=== PATIENT | male | born 2000 | race Caucasian/White ===

== ENCOUNTER 2018-01-02 22:25 | Emergency (ER) | payer OTHER ==
[2018-01-02 23:45] LABS: ABS Basophils 0 10^3/ul (0-0.2); ABS Eosinophils 0.2 10^3/ul (0-0.6); ABS Lymphocytes 1.3 10^3/ul (1.0-4.8); ABS Monocytes 1.3 10^3/ul (0-0.8); ABS Neutrophils 2.8 10^3/ul (1.5-7.7); ABS Nucleated RBC 0 10^3/ul; Eosinophil % 3.9 % (0-6); Hematocrit 44 % (42-52); Hemoglobin 15.7 g/dl (14.0-18.0); Lymphocyte % 22.4 % (25-47); Mean Corpuscular HGB Conc 35 g/dl (31-36); Mean Corpuscular Hemoglobin 33 pg (27-31); Mean Corpuscular Volume 92 fL (80-94); Mean Platelet Volume 7.4 fL (7.4-10.4); Nucleated Red Blood Cells % 0; Platelet Count 161 10^3/ul (150-450); Red Blood Count 4.81 10^6/ul (4.00-5.40); Red Cell Distribution Width 13 % (10.5-15); White Blood Count 5.6 10^3/ul (3.5-10.8)
[2018-01-02] MEDS ORDERED: Acetaminophen TAB* 325 MG ONE (23:49)
[2018-01-02] MEDS ORDERED: Acetaminophen TAB* 325 MG PO ONE (23:52)
[2018-01-03 00:02] LABS: EGFR Non-African American 122.8 (>60)
--- NOTE | 2018-01-03 00:54 | ED ---
Influenza-Like Illness - HPI Summary HPI Summary: Patient complains of fever up to 100.1, productive cough, body aches, headache, sinus congestion, facial pressure x 2 days. History of recurrent sinusitis. Patient was seen at urgent care yesterday, diagnosed with sinusitis and started on amoxicillin yesterday without improvement in symptoms today Patient states he normally improves after one day of antibiotics, and does not usually have fever with his sinusitis. Patient states he is concerned that he may have another infection. Denies ear pain, neck stiffness, sore throat, CP, SOB, N/V/D , abdominal pain, change in urine, change in BM. Medical history is asthma, seasonal allergies. Patient took Advil at 3:45 PM. - History of Current Complaint Chief Complaint: EDFever Time Seen by Provider: 01/02/18 22:57 Hx Obtained From: Patient Onset/Duration: Gradual Onset Severity: Moderate Associated Signs & Symptoms: Fever, Myalgia, Cough, Nasal Congestion, Headache - Allergy/Home Medications Allergies/Adverse Reactions: Allergies Allergy/AdvReac Type Severity Reaction Status Date / Time adhesive Allergy Rash And Verified 01/02/18 22:35 Itching prednisone Allergy See Comment Verified 01/02/18 22:35 sucralose Allergy See Comment Verified 01/02/18 22:35 PMH/Surg Hx/FS Hx/Imm Hx Endocrine/Hematology History: Denies: Hx Anticoagulant Therapy Cardiovascular History: Denies: Hx Cardiac Arrest History: Denies: Hx Dialysis Neurological History: Denies: Hx CVA Infectious Disease History: No Infectious Disease History: Denies: Traveled Outside the [place] in Last 30 Days - Social History Occupation: Student Alcohol Use: Rare Substance Use Type: Reports: None Smoking Status (MU): Never Smoked Tobacco Review of Systems Positive: Fever Eyes: Negative Positive: Nasal Discharge Cardiovascular: Negative Positive: Cough Gastrointestinal: Negative Genitourinary: Negative Musculoskeletal: Negative Skin: Negative Positive: Headache Psychological: Normal All Other Systems Reviewed And Are Negative: Yes Physical Exam Triage Information Reviewed: Yes Vital Signs On Initial Exam: Initial Vitals Temp Pulse Resp BP Pulse Ox 102.3 F 101 18 129/71 96 01/02/18 22:32 01/02/18 22:32 01/02/18 22:32 01/02/18 22:32 01/02/18 22:32 Vital Signs Reviewed: Yes Appearance: Positive: Well-Appearing Skin: Positive: Warm Head/Face: Positive: Normal Head/Face Inspection Eyes: Positive: Normal ENT: Positive: Pharyngeal erythema, Sinus tenderness, Uvula midline. Negative: Tonsillar swelling, Tonsillar exudate, Trismus, Muffled voice Neck: Positive: Supple Respiratory/Lung Sounds: Positive: Clear to Auscultation Cardiovascular: Positive: Normal Abdomen Description: Positive: Nontender Musculoskeletal: Positive: Normal Neurological: Positive: Normal Psychiatric: Positive: Normal AVPU Assessment: Alert - [place] Coma Scale Best Eye Response: 4 - Spontaneous Best Motor Response: 6 - Obeys Commands Best Verbal Response: 5 - Oriented Coma Scale Total: 15 Diagnostics - Vital Signs Vital Signs Temp Pulse Resp BP Pulse Ox 01/02/18 23:00 102.2 F 90 99 01/02/18 22:59 168 98 01/02/18 22:32 102.3 F 101 18 129/71 96 - Laboratory Lab Results: Lab Results 01/02/18 01/02/18 01/02/18 Range/Units 23:19 23:34 23:34 WBC 5.6 (3.5-10.8) 10^3/ul RBC 4.81 (4.00-5.40) 10^6/ul Hgb 15.7 (14.0-18.0) g/dl Hct 44 (42-52) % MCV 92 (80-94) fL MCH 33 H (27-31) pg MCHC 35 (31-36) g/dl RDW 13 (10.5-15) % Plt Count 161 (150-450) 10^3/ul MPV 7.4 (7.4-10.4) fL Neut % (Auto) 50.4 (38-83) % Lymph % (Auto) 22.4 L (25-47) % [place] % (Auto) 23.0 H (0-7) % Eos % (Auto) 3.9 (0-6) % Baso % (Auto) 0.3 (0-2) % Absolute Neuts (auto) 2.8 (1.5-7.7) 10^3/ul Absolute Lymphs (auto) 1.3 (1.0-4.8) 10^3/ul Absolute Monos (auto) 1.3 H (0-0.8) 10^3/ul Absolute Eos (auto) 0.2 (0-0.6) 10^3/ul Absolute Basos (auto) 0 (0-0.2) 10^3/ul Absolute Nucleated RBC 0 10^3/ul Nucleated RBC % 0 Sodium 137 (135-145) mmol/L Potassium 3.8 (3.5-5.0) mmol/L Chloride 103 (101-111) mmol/L Carbon Dioxide 26 (22-32) mmol/L Anion Gap 8 (2-11) mmol/L BUN 12 (6-24) mg/dL Creatinine 0.81 (0.67-1.17) mg/dL Est GFR ( Amer) 148.5 (>60) Est GFR (Non-Af Amer) 122.8 (>60) BUN/Creatinine Ratio 14.8 (8-20) Glucose 75 (70-100) mg/dL Lactic Acid (0.5-2.0) mmol/L Calcium 9.6 (8.6-10.3) mg/dL Total Bilirubin 0.60 (0.2-1.0) mg/dL AST 24 (13-39) U/L ALT 39 (7-52) U/L Alkaline Phosphatase 80 (34-104) U/L C-Reactive Protein 73.98 H (<8.01) mg/L Total Protein 7.4 (6.4-8.9) g/dL Albumin 4.6 (3.2-5.2) g/dL Globulin 2.8 (2-4) g/dL Albumin/Globulin Ratio 1.6 (1-3) Monoscreen Negative (Negative) Influenza A (Rapid) Negative (Negative) Influenza B (Rapid) Negative (Negative) 01/02/18 Range/Units 23:34 WBC (3.5-10.8) 10^3/ul RBC (4.00-5.40) 10^6/ul Hgb (14.0-18.0) g/dl Hct (42-52) % MCV (80-94) fL MCH (27-31) pg MCHC (31-36) g/dl RDW (10.5-15) % Plt Count (150-450) 10^3/ul MPV (7.4-10.4) fL Neut % (Auto) (38-83) % Lymph % (Auto) (25-47) % [place] % (Auto) (0-7) % Eos % (Auto) (0-6) % Baso % (Auto) (0-2) % Absolute Neuts (auto) (1.5-7.7) 10^3/ul Absolute Lymphs (auto) (1.0-4.8) 10^3/ul Absolute Monos (auto) (0-0.8) 10^3/ul Absolute Eos (auto) (0-0.6) 10^3/ul Absolute Basos (auto) (0-0.2) 10^3/ul Absolute Nucleated RBC 10^3/ul Nucleated RBC % Sodium (135-145) mmol/L Potassium (3.5-5.0) mmol/L Chloride (101-111) mmol/L Carbon Dioxide (22-32) mmol/L Anion Gap (2-11) mmol/L BUN (6-24) mg/dL Creatinine (0.67-1.17) mg/dL Est GFR ( Amer) (>60) Est GFR (Non-Af Amer) (>60) BUN/Creatinine Ratio (8-20) Glucose (70-100) mg/dL Lactic Acid 1.0 (0.5-2.0) mmol/L Calcium (8.6-10.3) mg/dL Total Bilirubin (0.2-1.0) mg/dL AST (13-39) U/L ALT (7-52) U/L Alkaline Phosphatase (34-104) U/L C-Reactive Protein (<8.01) mg/L Total Protein (6.4-8.9) g/dL Albumin (3.2-5.2) g/dL Globulin (2-4) g/dL Albumin/Globulin Ratio (1-3) Monoscreen (Negative) Influenza A (Rapid) (Negative) Influenza B (Rapid) (Negative) Result Diagrams: 01/02/18 23:34 01/02/18 23:34 Lab Statement: Any lab studies that have been ordered have been reviewed, and results considered in the medical decision making process. Flu Symptom Course/Dx - Course Course Of Treatment: Patient complains of fever up to 100.1, productive cough, body aches, headache, sinus congestion, facial pressure x 2 days. History of recurrent sinusitis. Patient was seen at urgent care yesterday, diagnosed with sinusitis and started on amoxicillin yesterday without improvement in symptoms today Patient states he normally improves after one day of antibiotics, and does not usually have fever with his sinusitis. Patient states he is concerned that he may have another infection. Denies ear pain, neck stiffness, sore throat, CP, SOB, N/V/D, abdominal pain, change in urine, change in BM. Medical history is asthma, seasonal allergies. Patient took Advil at 3:45 PM. Physical exam unremarkable. Temperature of 102.4. Vital signs otherwise unremarkable. Labs unremarkable. Negative for flu, mono. Fever controlled ibuprofen and Tylenol. Chest x-ray unremarkable. Patient provided with Rx for Augmentin to replace amoxicillin. - Diagnoses Provider Diagnoses: Viral syndrome Discharge - Sign-Out/Discharge Documenting (check all that apply): Patient Departure - Discharge Plan Condition: Stable Disposition: HOME Prescriptions: Amoxicillin/Clavulanate TAB* [Augmentin TAB 875*] 875 mg PO BID #20 tab Patient Education Materials: Viral Syndrome (ED) Forms: *School Release Referrals: No Primary Care PhysNOPCP [Primary Care Provider] - [facility] [Outside] Additional Instructions: Alternate 600 mg of ibuprofen with 600 mg of Tylenol every 3 hours for fever control. Drink plenty of fluids. Continue taking antibiotics. Return to the ED for any new or worsening symptoms - Billing Disposition and Condition Condition: STABLE Disposition: Home
[2018-01-03] MEDS ORDERED: Ibuprofen TAB* 600 MG PO ONE (01:20)
[2018-01-03] MEDS ORDERED: Amoxicillin/Clavulanate TAB* 875 MG PO ONE (02:33)
[2018-01-03 02:48] VITALS: BP 123/57
--- NOTE | 2018-01-03 09:36 | RAD ---
INDICATION: Cough and fever x48 hours COMPARISON: None TECHNIQUE: PA and lateral views of the chest were obtained. FINDINGS: The heart and mediastinum are normal in size and contour. The lungs are grossly clear. There is no evidence of large pleural effusion. Visualized bones are normal for the patient's age. There is no radiographic evidence of free air beneath the diaphragm IMPRESSION: No radiographic evidence of acute cardiopulmonary disease. R0
== END 2018-01-03 02:30 | disposition home or self-care (01) ==
LOC: ED 22:25
DX: B34.9 Viral infection, unspecified (principal); Z88.8 Allergy status to other drugs, medicaments and biological substances; Z91.048 Other nonmedicinal substance allergy status
CPT/HCPCS: 36415; 71046; 80053; 83605; 85025; 86140; 86308; 87040; 99283; A9270-GY

== ENCOUNTER → 2018-02-11 13:34 | Emergency (ER) | payer OTHER ==
[~2018-02-11 13:34] MED LIST: NS 0.9% 1000 ML* 1,000 ML IV ONE
[2018-02-11 14:08] LABS: ABS Basophils 0 10^3/ul (0-0.2); ABS Eosinophils 0.4 10^3/ul (0-0.6); ABS Lymphocytes 1.8 10^3/ul (1.0-4.8); ABS Monocytes 1.1 10^3/ul (0-0.8); ABS Neutrophils 1.8 10^3/ul (1.5-7.7); ABS Nucleated RBC 0 10^3/ul; Eosinophil % 8.3 %; Hematocrit 42 % (42-52); Hemoglobin 14.7 g/dl (14.0-18.0); Lymphocyte % 34.4 %; Mean Corpuscular HGB Conc 35 g/dl (31-36); Mean Corpuscular Hemoglobin 32 pg (27-31); Mean Corpuscular Volume 92 fL (80-94); Mean Platelet Volume 7.4 fL (7.4-10.4); Nucleated Red Blood Cells % 0.1; Platelet Count 187 10^3/ul (150-450); Red Blood Count 4.58 10^6/ul (4.00-5.40); Red Cell Distribution Width 14 % (10.5-15); White Blood Count 5.2 10^3/ul (3.5-10.8)
[2018-02-11 14:27] LABS: EGFR Non-African American 116.1 (>60)
[2018-02-11 15:38] VITALS: BP 123/64
--- NOTE | 2018-02-11 15:49 | ED ---
Syncope/Near Syncope - HPI Summary HPI Summary: Patient is a 17-year-old male presenting by EMS from [facility] stating he had a syncopal episode approximately 1 hour [employer]IP[employer]. He has had a history of 2 syncopal episodes, several years ago. He states he has been sick recently and was placed on antibiotics for bronchitis. He states he was getting a glass of water when he felt lightheaded, had a syncopal episode and an LOC. He states he feels well and is asymptomatic. Denies PEREZ, memory loss or confusion. - History Of Current Complaint Chief Complaint: EDSyncope Time Seen by Provider: 02/11/18 13:44 Hx Obtained From: Patient Onset/Duration: Sudden Onset Timing: Constant Context: Witnessed Associated Head Trauma: Yes Aggravating Factor(s): Nothing Alleviating Factor(s): Nothing - Risk Factors Cardiac Risk Factors: Negative Dysrhythmia Risk Factors: Negative Risk Factor(s): Negative - Allergies/Home Medications Allergies/Adverse Reactions: Allergies Allergy/AdvReac Type Severity Reaction Status Date / Time adhesive Allergy Rash And Verified 02/11/18 13:41 Itching prednisone Allergy See Comment Verified 02/11/18 13:41 sucralose Allergy See Comment Verified 02/11/18 13:41 Home Medications: Home Medications Fluticasone/Salmeterol [Fluticasone-Salmeterol 55-14] 2 puff INH BID 02/11/18 [ History Confirmed 02/11/18] ZyrTEC 10 MG TAB* 10 mg PO DAILY 02/11/18 [History Confirmed 02/11/18] PMH/Surg Hx/FS Hx/Imm Hx Previously Healthy: Yes Endocrine/Hematology History: Denies: Hx Anticoagulant Therapy Cardiovascular History: Denies: Hx Cardiac Arrest History: Denies: Hx Dialysis Neurological History: Denies: Hx CVA - Immunization History Hx Pertussis Vaccination: No Immunizations Up to Date: Yes Infectious Disease History: Unable to Obtain/Confirm Infectious Disease History: Denies: Traveled Outside the [place] in Last 30 Days - Social History Occupation: Unemployed, Student Lives: With Family Alcohol Use: Rare Hx Substance Use: No Substance Use Type: Reports: None Hx Tobacco Use: No Smoking Status (MU): Never Smoked Tobacco Review of Systems Constitutional: Negative Negative: Fever, Chills, Fatigue, Skin Diaphoresis Negative: Palpitations, Chest Pain Negative: Shortness Of Breath, Cough Genitourinary: Negative Positive: no symptoms reported, see HPI Negative: Arthralgia, Myalgia Skin: Negative Positive: Syncope All Other Systems Reviewed And Are Negative: Yes Physical Exam Triage Information Reviewed: Yes Vital Signs On Initial Exam: Initial Vitals Temp Pulse Resp BP Pulse Ox 97.8 F 58 17 135/77 100 02/11/18 13:38 02/11/18 13:38 02/11/18 13:38 02/11/18 13:38 02/11/18 13:38 Vital Signs Reviewed: Yes Appearance: Positive: Well-Appearing, Well-Nourished Skin: Positive: Warm, Skin Color Reflects Adequate Perfusion Head/Face: Positive: Normal Head/Face Inspection Neck: Positive: Supple, No Lymphadenopathy Respiratory/Lung Sounds: Positive: Clear to Auscultation, Breath Sounds Present Cardiovascular: Positive: RRR, Pulses are Symmetrical in both Upper and Lower Extremities Musculoskeletal: Positive: Normal, Strength/ROM Intact Neurological: Positive: Speech Normal Psychiatric: Positive: Affect/Mood Appropriate AVPU Assessment: Alert Diagnostics - Vital Signs Vital Signs Temp Pulse Resp BP Pulse Ox 02/11/18 15:36 98.3 F 63 18 123/64 100 02/11/18 13:38 97.8 F 58 17 135/77 100 - Laboratory Lab Results: Lab Results 02/11/18 02/11/18 02/11/18 Range/Units 13:47 13:47 13:47 WBC 5.2 (3.5-10.8) 10^3/ul RBC 4.58 (4.00-5.40) 10^6/ul Hgb 14.7 (14.0-18.0) g/dl Hct 42 (42-52) % MCV 92 (80-94) fL MCH 32 H (27-31) pg MCHC 35 (31-36) g/dl RDW 14 (10.5-15) % Plt Count 187 (150-450) 10^3/ul MPV 7.4 (7.4-10.4) fL Neut % (Auto) 35.5 % Lymph % (Auto) 34.4 % [place] % (Auto) 21.3 % Eos % (Auto) 8.3 % Baso % (Auto) 0.5 % Absolute Neuts (auto) 1.8 (1.5-7.7) 10^3/ul Absolute Lymphs (auto) 1.8 (1.0-4.8) 10^3/ul Absolute Monos (auto) 1.1 H (0-0.8) 10^3/ul Absolute Eos (auto) 0.4 (0-0.6) 10^3/ul Absolute Basos (auto) 0 (0-0.2) 10^3/ul Absolute Nucleated RBC 0 10^3/ul Nucleated RBC % 0.1 Sodium 139 (135-145) mmol/L Potassium 4.0 (3.5-5.0) mmol/L Chloride 106 (101-111) mmol/L Carbon Dioxide 27 (22-32) mmol/L Anion Gap 6 (2-11) mmol/L BUN 12 (6-24) mg/dL Creatinine 0.85 (0.67-1.17) mg/dL Est GFR ( Amer) 140.5 (>60) Est GFR (Non-Af Amer) 116.1 (>60) BUN/Creatinine Ratio 14.1 (8-20) Glucose 81 (70-100) mg/dL Lactic Acid 0.7 (0.5-2.0) mmol/L Calcium 9.8 (8.6-10.3) mg/dL Magnesium 2.0 (1.9-2.7) mg/dL Total Bilirubin 0.60 (0.2-1.0) mg/dL AST 35 (13-39) U/L ALT 82 H (7-52) U/L Alkaline Phosphatase 78 (34-104) U/L Troponin I 0.00 (<0.04) ng/mL Total Protein 6.9 (6.4-8.9) g/dL Albumin 4.5 (3.2-5.2) g/dL Globulin 2.4 (2-4) g/dL Albumin/Globulin Ratio 1.9 (1-3) Result Diagrams: 02/11/18 13:47 02/11/18 13:47 Lab Statement: Any lab studies that have been ordered have been reviewed, and results considered in the medical decision making process. Course/Dx Course Of Treatment: Patient is evaluated for syncopal episode which occurred 1 hour M[employer]IP[employer]. He states he does not recall the event, however he remembers being slightly lightheaded just before syncopal episode. He has not been eating and drinking well and did not have anything to eat or drink today. He states he was walking over to get a drink when he felt lightheaded and fell, hitting the right back of his head with positive LOC. He states this happened in the past, and has had workups for this. He is still unsure why they have recurred. This is his third syncopal episode 4 years. Denies any known heart condition and takes no medications. However he has been sick recently and has been taking antibiotics. Labs are obtained and are unremarkable. Orthostatics obtained and are WNL. Patient is given fluids feeling improved. He will be discharged with syncope and will follow back up with [facility]. - Diagnoses Provider Diagnoses: Syncope Discharge - Sign-Out/Discharge Documenting (check all that apply): Patient Departure - Discharge Plan Condition: Stable Disposition: HOME Patient Education Materials: Syncope (ED) Referrals: No Primary Care Phys,NOPCP [Primary Care Provider] - - Billing Disposition and Condition Condition: STABLE Disposition: Home
== END | disposition home or self-care (01) ==
LOC: ED 13:34
DX: R55 Syncope and collapse (principal); Z88.8 Allergy status to other drugs, medicaments and biological substances; Z91.048 Other nonmedicinal substance allergy status
CPT/HCPCS: 36415; 80053; 83605; 83735; 84484; 85025; 93005; 96360; 99282

== ENCOUNTER 2019-05-03 11:27 | Emergency (ER) | payer SELFPAY ==
--- NOTE | 2019-05-03 12:27 | ED ---
Lower Extremity - HPI Summary HPI Summary: Patient is a 18 y/o M presenting to [facility] with complaints of right foot pain and swelling. He states that he went to sleep last night asymptomatic and awoke this morning with Sx present. He states that the pain is located primarily at his toes and the lateral aspect of his foot. Pain is rated 6-7/10 in severity. He denies any recent heavy lifting or discrete injuries. Patient is capable of weight-bearing and ambulation but states that these activities aggravate his pain. Patient notes foot is painful to touch. PMHx denied. No PSHx noted. He denies tobacco, alcohol, and substance usage. FMHx of diabetes and kidney failure reported. Home medications and allergies are reviewed. No fever as vitals show temp of 98.3 F. Home Medications Medication Instructions Recorded Confirmed Type Cetirizine* [ZyrTEC 10 MG TAB*] 10 mg PO TID 05/03/19 05/03/19 History Fluticasone NASAL SPRAY 50MCG* 1 spray BOTH NARES DAILY 05/03/19 05/03/19 History [Flonase NASAL SPRAY 50MCG*] Fluticasone/Vilanterol [Breo 2 inh PO BID 05/03/19 05/03/19 History Ellipta 200-25 Mcg INH] Levofloxacin TAB* [Levaquin TAB*] 750 mg PO DAILY 05/03/19 05/03/19 History - History of Current Complaint Chief Complaint: EDExtremityLower Stated Complaint: RT FOOT PAIN PER PT Time Seen by Provider: 05/03/19 11:43 Hx Obtained From: Patient Onset of Pain: Prior to Arrival Onset/Duration: Still Present Severity Currently: Severe Pain Intensity: 7 Pain Scale Used: 0-10 Numeric Timing: Constant Location: Is Discrete @ - right foot Associated Signs And Symptoms: Positive: Swelling Aggravating Factor(s): Ambulation, Weight Bearing, Other - palpation Able to Bear Weight: Yes - Allergies/Home Medications Allergies/Adverse Reactions: Allergies Allergy/AdvReac Type Severity Reaction Status Date / Time adhesive Allergy Rash And Verified 02/11/18 13:41 Itching prednisone Allergy See Comment Verified 02/11/18 13:41 Home Medications: Home Medications Cetirizine* [ZyrTEC 10 MG TAB*] 10 mg PO TID 05/03/19 [History Confirmed ] Fluticasone NASAL SPRAY 50MCG* [Flonase NASAL SPRAY 50MCG*] 1 spray BOTH NARES DAILY 05/03/19 [History Confirmed 05/03/19] Fluticasone/Vilanterol [Breo Ellipta 200-25 Mcg INH] 2 inh PO BID 05/03/19 [ History Confirmed 05/03/19] Levofloxacin TAB* [Levaquin TAB*] 750 mg PO DAILY 05/03/19 [History Confirmed ] PMH/Surg Hx/FS Hx/Imm Hx Endocrine/Hematology History: Denies: Hx Anticoagulant Therapy Cardiovascular History: Denies: Hx Cardiac Arrest History: Denies: Hx Dialysis Neurological History: Denies: Hx CVA Infectious Disease History: No Infectious Disease History: Denies: Traveled Outside the [place] in Last 30 Days - Family History Known Family History: Positive: Diabetes, Renal Disease - kidney failure - Social History Alcohol Use: Rare Hx Substance Use: No Substance Use Type: Reports: None Hx Tobacco Use: No Smoking Status (MU): Never Smoked Tobacco Review of Systems Negative: Fever - No fever as vitals show temp of 98.3 F. Positive: Myalgia, Edema All Other Systems Reviewed And Are Negative: Yes Physical Exam - Summary Physical Exam Summary: VITAL SIGNS: Reviewed. GENERAL: Patient is a well-developed and nourished male who is lying comfortable in the stretcher. Patient is not in any acute respiratory distress. HEAD AND FACE: No signs of trauma. No ecchymosis, hematomas or skull depressions. No sinus tenderness. EYES: PERRLA, EOMI x 2, No injected conjunctiva, no nystagmus. EARS: Hearing grossly intact. Ear canals and tympanic membranes are within normal limits. MOUTH: Oropharynx within normal limits. NECK: Supple, trachea is midline, no adenopathy, no JVD, no carotid bruit, no c- spine tenderness, neck with full ROM. CHEST: Symmetric, no tenderness at palpation. LUNGS: Clear to auscultation bilaterally. No wheezing or crackles. CVS: Regular rate and rhythm, S1 and S2 present, no murmurs or gallops appreciated. ABDOMEN: Soft, non-tender. No signs of distention. No rebound, no guarding, and no masses palpated. Bowel sounds are normal. EXTREMITIES: There is some swelling of the lateral aspect of the right foot as well as tenderness and ecchymosis. FROM in all major joints, \no cyanosis or clubbing. Good pulses, good capillary refill noted. NEURO: Alert and oriented x 3. No acute neurological deficits. Speech is normal and follows commands. SKIN: Dry and warm. Triage Information Reviewed: Yes Vital Signs On Initial Exam: Initial Vitals Temp Pulse Resp BP Pulse Ox 98.3 F 63 8 133/78 98 05/03/19 11:28 05/03/19 11:28 05/03/19 11:28 05/03/19 11:28 05/03/19 11:28 Vital Signs Reviewed: Yes Procedures - Sedation Patient Received Moderate/Deep Sedation with Procedure: No Diagnostics - Vital Signs Vital Signs Temp Pulse Resp BP Pulse Ox 05/03/19 11:28 98.3 F 63 8 133/78 98 - Laboratory Lab Statement: Any lab studies that have been ordered have been reviewed, and results considered in the medical decision making process. - Radiology RIGHT ANKLE X-RAY Radiology Interpretation Completed By: Radiologist Summary of Radiographic Findings: RIGHT ANKLE X-RAY IMPRESSION: NO ACUTE OSSEOUS INJURY. IF SYMPTOMS PERSIST, RECOMMEND REPEAT IMAGING. THIS REPORT WAS REVIEWED BY ED PHYSICIAN. RIGHT FOOT X-RAY Radiology Interpretation Completed By: Radiologist Summary of Radiographic Findings: RIGHT FOOT X-RAY IMPRESSION: NO ACUTE OSSEOUS INJURY. IF SYMPTOMS PERSIST, RECOMMEND REPEAT IMAGING. THIS REPORT WAS REVIEWED BY ED PHYSICIAN. Lower Extremity Course/Dx - Course Assessment/Plan: Patient is a 18 y/o M presenting to [facility] with complaints of right foot pain and swelling. He states that he went to sleep last night asymptomatic and awoke this morning with Sx present. He states that the pain is located primarily at his toes and the lateral aspect of his foot. Pain is rated 6-7/10 in severity. He denies any recent heavy lifting or discrete injuries. Patient is capable of weight-bearing and ambulation but states that these activities aggravate his pain. Patient notes foot is painful to touch. PMHx denied. No PSHx noted. Ankle and foot x-ray IMPRESSION: NO ACUTE OSSEOUS INJURY. IF SYMPTOMS PERSIST, RECOMMEND REPEAT IMAGING. Patient given toradol. Patient able to ambulate w/o significant discomfort. He was discharged home with f/u of PCP. Recommend Ibuprofen for pain. If symptoms worsen should come to ED. - Diagnoses Provider Diagnoses: Pain in joint, ankle and foot Discharge ED - Sign-Out/Discharge Documenting (check all that apply): Patient Departure - discharge - Discharge Plan Condition: Stable Disposition: HOME Patient Education Materials: Foot Sprain (ED), Ankle Strain (ED) [facility] - 3 Days Additional Instructions: PLEASE RETURN TO ED FOR ANY NEW OR WORSENING SYMPTOMS. PLEASE FOLLOW UP WITH YOUR PRIMARY CARE PHYSICIAN WITHIN THREE DAYS. - Billing Disposition and Condition Condition: STABLE Disposition: Home - Attestation Statements Document Initiated by Gisele: Yes Documenting Scribe: JESÚS SHORE Provider For Whom Gsiele is Documenting (Include Credential): GLENIS PRITCHARD MD Scribe Attestation: IJESÚS, scribed for GLENIS PRITCHARD MD on 05/03/19 at 1520. Scribe Documentation Reviewed: Yes Provider Attestation: The documentation as recorded by the JESÚS villagran accurately reflects the service I personally performed and the decisions made by me, GLENIS PRITCHARD MD Status of Scribe Document: Viewed
[2019-05-03] MEDS ORDERED: Ketorolac *IM* INJ* 60 MG/2 ML VIAL IM ONE (13:29)
[2019-05-03 14:16] VITALS: BP 151/46
== END 2019-05-03 14:14 | disposition home or self-care (01) ==
LOC: ED 11:27
DX: M25.571 Pain in right ankle and joints of right foot (principal); R60.0 Localized edema; Z88.8 Allergy status to other drugs, medicaments and biological substances; Z91.048 Other nonmedicinal substance allergy status
CPT/HCPCS: 96372; 99282; J1885